=== PATIENT | female | born 1965 | race Caucasian/White ===

== ENCOUNTER 2024-01-05 21:30 | Emergency (ER) | payer OTHER ==
[~2024-01-05] VITALS: Ht 152.4 cm; Wt 90.7 kg
[2024-01-05 23:11] VITALS: BP 120/57; PULSE 75; RESP 24; TEMP 98; O2SAT 98
[2024-01-06 04:08] VITALS: BP 122/58; PULSE 76; RESP 18; TEMP 98.1; O2SAT 98
== END 2024-01-06 04:08 | disposition home or self-care (01) ==
LOC: MED 21:30
DX: F10.129 Alcohol abuse with intoxication, unspecified (principal); Y90.9 Presence of alcohol in blood, level not specified
CPT/HCPCS: 99283

== ENCOUNTER 2024-01-16 20:57 | Emergency (ER) | payer OTHER ==
[~2024-01-16] VITALS: Ht 152.4 cm; Wt 77.1 kg
[2024-01-16 21:18] VITALS: BP 117/77; PULSE 100; RESP 18; TEMP 98; O2SAT 99
== END 2024-01-16 22:40 | disposition left against medical advice (07) ==
LOC: MED 20:57
DX: F10.129 Alcohol abuse with intoxication, unspecified (principal); Z53.21 Procedure and treatment not carried out due to patient leaving prior to being seen by health care provider; Y90.9 Presence of alcohol in blood, level not specified
CPT/HCPCS: 99281

== ENCOUNTER 2024-04-19 10:53 | Emergency (ER) | payer OTHER ==
[~2024-04-19] VITALS: Ht 152.4 cm; Wt 77.1 kg
[2024-04-19 11:03] VITALS: BP 126/66; PULSE 86; RESP 16; TEMP 98.7; O2SAT 99
[2024-04-19] MEDS: diphenhydrAMINE 50 MG/ML VIAL IM ONE (11:09)
[2024-04-19] MEDS: LORazepam 2 MG/ML VIAL IM ONE (11:09)
[2024-04-19] MEDS: OLANZapine 10 MG VIAL IM ONE (11:09)
[2024-04-19 11:15] VITALS: O2SAT 99
[2024-04-19 11:32] LABS: BASOPHILS % (AUTO) 1.1 % (0.0-2.0); EOSINOPHILS # (AUTO) 0.1 K/uL (0-0.4); EOSINOPHILS % (AUTO) 2.1 % (0.0-4.0); HEMATOCRIT 26.4 % (36-48); HEMOGLOBIN 8.2 g/dL (12.0-16.0); LYMPHOCYTES # (AUTO) 1.8 K/uL (2.5-16.5); LYMPHOCYTES % (AUTO) 49.9 % (20.5-51.1); MEAN CORPUSCULAR HEMOGLOBIN 23 pg (27-31); MEAN CORPUSCULAR HGB CONC 31 g/dL (33-37); MEAN CORPUSCULAR VOLUME 74.7 fL (80-94); MONOCYTES # (AUTO) 0.2 K/uL (0.8-1.0); MONOCYTES % (AUTO) 6.1 % (1.7-9.3); NEUTROPHILS # (AUTO) 1.4 K/uL (1.8-7.7); NEUTROPHILS % (AUTO) 40.8 % (42.2-75.2); PLATELET COUNT (AUTO) 393 K/uL (140-450); RED BLOOD CELL COUNT(AUTO) 3.54 MIL/uL (4.20-5.40); RED CELL DISTRIBUTION WIDTH 18.9 % (11.6-13.7); WHITE BLOOD COUNT (AUTO) 3.6 K/uL (4.8-10.8)
[2024-04-19 11:48] LABS: ANION GAP 17.2 (8-16); CALCIUM 8.2 mg/dL (8.5-10.1); CARBON DIOXIDE 21.7 mmol/L (21-32)
[2024-04-19 11:49] LABS: APPEARANCE,URINE CLEAR (CLEAR); BILIRUBIN,URINE NEGATIVE (NEGATIVE); BLOOD, URINE NEGATIVE (NEGATIVE); COLOR,URINE YELLOW (YELLOW); LEUKOCYTE ESTERASE ,URINE NEGATIVE (NEGATIVE); NITRITE, URINE NEGATIVE (NEGATIVE); PROTEIN,URINE 1+ (NEGATIVE); UGLUCOSE NEGATIVE (NEGATIVE); UROBILINOGEN,URINE 0.2 EU/dL (0.2 - 1)
[2024-04-19 11:49] LABS: POTASSIUM 2.9 mmol/L (3.5-5.1)
[2024-04-19 11:59] LABS: ALANINE AMINOTRANSFERASE 16 U/L (12-78); ALBUMIN 3.3 g/dL (3.4-5.0); ALCOHOL, BLOOD 161 mg/dL (<10); ALKALINE PHOSPHATASE 74 U/L (50-136); ASPARTATE AMINOTRANSFERASE 16 U/L (15-37); CREATINE KINASE, TOTAL 164 U/L (26-192); TOTAL BILIRUBIN 0.2 mg/dL (0.0-1.0); TOTAL PROTEIN, SERUM 7.2 g/dL (6.4-8.2)
[2024-04-19 12:00] LABS: ACETAMINOPHEN < 0.5 ug/ml (10-30); SALICYLATE < 2.8 mg/dL (2.8-20.0)
[2024-04-19 12:02] LABS: AMPHETAMINE, URINE POSITIVE ng/ml (NEG <=1000); BARBITURATE, URINE NEGATIVE ng/ml (NEG <=200); BENZODIAZEPINE, URINE NEGATIVE ng/mL (NEG <=200); CANNABINOID, URINE NEGATIVE ng/mL (NEG <=50); COCAINE, URINE NEGATIVE ng/mL (NEG <=300); OPIATE, URINE NEGATIVE ng/mL (NEG <=2000); PHENCYCLIDINE SCREEN,URINE NEGATIVE ng/mL (NEG <=25)
[2024-04-19 13:17] VITALS: O2SAT 99
[2024-04-19] MEDS: NACL 0.9% 1,000 ML IV ONE (13:39)
[2024-04-19] MEDS: KCL 20 MEQ IN 100 mL PREMIX 100 ML IV ONE (13:48)
[2024-04-19 19:30] VITALS: O2SAT 97
[2024-04-19 21:44] VITALS: O2SAT 97
[2024-04-20 00:44] VITALS: O2SAT 97
[2024-04-20 02:45] VITALS: O2SAT 97
[2024-04-20 04:45] VITALS: O2SAT 97
[2024-04-20 06:45] VITALS: O2SAT 97
[2024-04-20 06:46] VITALS: BP 113/70; PULSE 68; RESP 13; TEMP 97.7; O2SAT 97
== END 2024-04-20 06:46 | disposition home or self-care (01) ==
LOC: MED 10:53
DX: F10.129 Alcohol abuse with intoxication, unspecified (principal); F15.10 Other stimulant abuse, uncomplicated; R45.1 Restlessness and agitation; E87.6 Hypokalemia; Y90.6 Blood alcohol level of 120-199 mg/100 ml
CPT/HCPCS: 36415; 80048; 80076; 80305; 81003; 82550; 84484; 85025; 93005; 96365; 96366; 96372; 99285; G0480; G0482; J2060; J3480; J7030